=== PATIENT | male | born 1945 | race Caucasian/White ===

== ENCOUNTER 2018-06-10 | Emergency (ER) | payer BC, OTHER | END 2018-06-10 14:25 | disposition home or self-care (01) | DX: H10.12 Acute atopic conjunctivitis, left eye (principal); E78.5 Hyperlipidemia, unspecified ==

== ENCOUNTER 2019-03-10 08:21 | Day surgery (SDC) | payer OTHER ==
--- NOTE | 2019-03-09 10:08 | PDGENHP ---
History & Physical Chief Complaint: Right knee ACL tear and tibial avulsion, MCL tear, meniscus tear History of Present Illness: Dion is a pleasant 73 mckenna old male with right knee ACL tear and tibial avulsion, grade III MCL tear, medial and lateral meniscus tears, segond fracture after skiing injury on 01/20/19. He continues to have pain and instability due to the injury and would like to proceed with surgical intervention Pertinent Past, Social, Family History: PMH: arthritis, GERD, hernia, sleep apnea. SH: former smoker. FH: non-contributory Relevant Physical Exam: Physical exam of the right knee demonstrates tenderness overlying both the medial and lateral joint line. He has a mild joint effusion as well as moderate soft issue swelling. He has increased laxity to a valgus stress with a slightly loose end point, but this has improved since his previous visit. Lachmans and anterior drawer positive. He is tender overlying the origin and insertion of the MCL which is less tender over the medial joint line and has improved since his previous visit. Distal NVI. Cardiorespiratory Assessment: RRR, CTAB
[2019-03-10] MEDS ORDERED: ceFAZolin 2 GM/DEXTROSE 100 ML IV ONE (08:38)
[2019-03-10] MEDS ORDERED: LR 1,000 ML IV ONE (08:39)
[2019-03-10] MEDS ORDERED: BUPIVACAINE/EPI 0.25% 30 ML SDV ONE (08:40)
[2019-03-10] MEDS ORDERED: EPINEPHrine 1 MG/ML INJ ONE (08:41)
--- NOTE | 2019-03-10 09:20 | PDHPUP ---
History & Physical Update H&P update statement: This history and physical update is based on an assessment of the patient which was completed after admission or registration (within 24 hours), but prior to the surgery/procedure. H&P update: H&P reviewed & patient examined, no change in patient's condition since H&P completed
--- NOTE | 2019-03-10 09:42 | PDANEPAE ---
ANE History of Present Illness ruptured ACL here for repair ANE Past Medical History - Cardiovascular History Hx Hypertension: No Hx Arrhythmias: No Hx Chest Pain: No Hx Coronary Artery / Peripheral Vascular Disease: No Hx CHF / Valvular Disease: No Hx Palpitations: No Cardiovascular History Comment: high chol - Pulmonary History Hx COPD: No Hx Asthma/Reactive Airway Disease: No Hx Recent Upper Respiratory Infection: No Hx Oxygen in Use at Home: No Hx Sleep Apnea: Yes Sleep Apnea Screening Result - Last Documented: Positive Pulmonary History Comment: terri positive uses cpap - Neurologic History Hx Cerebrovascular Accident: No Hx Seizures: No Hx Dementia: No - Endocrine History Hx Diabetes: No - Renal History Hx Renal Disorders: No - Liver History Hx Hepatic Disorders: No - Neurological & Psychiatric Hx Hx Neurological and Psychiatric Disorders: No - Cancer History Hx Cancer: No - Congenital Disorder History Hx Congenital Disorders: No - GI History Hx Gastrointestinal Disorders: No - Other Health History Other Health History: wears glasses - Chronic Pain History Chronic Pain: Yes (right knee pain) - Surgical History Prior Surgeries: hernia repair 2018. tonsillectomy as a child ANE Review of Systems Review of Systems: - Exercise capacity METS (RN): 4 METS ANE Patient History - Allergies Allergies/Adverse Reactions: No Known Allergies Allergy (Verified 03/03/19 09:14) - Home Medications Home Medications: Atorvastatin Calcium 06/10/18 [Last Taken 03/09/19 08:00] Flomax 06/10/18 [Last Taken 03/09/19 08:00] Meloxicam 06/10/18 [Last Taken 03/09/19 08:00] Herbals/Supplements -Info Only 03/03/19 [Last Taken 03/09/19 08:00] Testosterone 03/03/19 [Last Taken 03/09/19 08:00] Cialis 03/10/19 [Last Taken 03/09/19 17:00] - NPO status NPO Status: no food or drink >8 hours NPO Since - Liquids (Date): 03/09/19 NPO Since - Liquids (Time): 21:00 NPO Since - Solids (Date): 03/09/19 NPO Since - Solids (Time): 18:00 - Anes Hx Anes Hx: no prior problems - Smoking Hx Smoking Status: Never smoked - Alcohol Use Alcohol Use: Occasionally - Family Anes Hx Family Anes Hx: none Family Hx Anesthesia Complications: none ANE Labs/Vital Signs - Vital Signs Blood Pressure: 118/74 Heart Rate: 69 Respiratory Rate: 16 O2 Sat (%): 94 Height: 180.34 cm Weight: 81.647 kg ANE Physical Exam - Airway Neck exam: FROM Mallampati Score: Class 2 Mouth exam: normal dental/mouth exam - Pulmonary Pulmonary: no respiratory distress, clear to auscultation - Cardiovascular Cardiovascular: regular rate and rhythym, no murmur, rub, or gallop - ASA Status ASA Status: II ANE Anesthesia Plan Anesthesia Plan: GA w LMA Regional Anesthesia: single shot NB, adductor canal FNB
[2019-03-10] MEDS ORDERED: MIDAZOLAM 2 MG/2 ML VIAL IVP ONE (09:43)
[2019-03-10] MEDS ORDERED: PROPOFOL 200 MG/20 ML VIAL ONE (09:52)
[2019-03-10] MEDS ORDERED: fentaNYL 100 MCG/2 ML INJ ONE ×3 (09:52→13:11)
[2019-03-10] MEDS ORDERED: LIDOCAINE 2% 100 MG/5 ML SYR ONE (09:52)
[2019-03-10] MEDS ORDERED: clonIDINE 1 MG/10 ML VIAL EP ONE (09:53)
[2019-03-10] MEDS ORDERED: ROPIVACAINE HCL 150 MG/30 ML INJ ONE (09:53)
[2019-03-10] MEDS ORDERED: ONDANSETRON 4 MG/2 ML VIAL ONE (10:40)
[2019-03-10] MEDS ORDERED: DEXAMETHASONE 4 MG/ML VIAL ONE (10:40)
[2019-03-10] MEDS ORDERED: THROMBIN (BOVINE) 5,000 UNIT VIAL TP ONE (10:41)
[2019-03-10] MEDS ORDERED: CALCIUM CHLORIDE 1 GM/10 ML INJ ONE (10:41)
[2019-03-10] MEDS ORDERED: ACETAMINOPHEN 500 MG TAB PO PRN ×2 (11:25→12:33)
[2019-03-10] MEDS ORDERED: HYDROmorphONE/DILAUDID 1 MG/ML INJ IVP PRN ×2 (11:25→12:33)
[2019-03-10] MEDS ORDERED: fentaNYL 100 MCG/2 ML INJ IVP PRN ×2 (11:25→12:33)
[2019-03-10] MEDS ORDERED: HYDROCODONE/APAP 5/325 TAB PO PRN ×2 (11:25→12:33)
[2019-03-10] MEDS ORDERED: ONDANSETRON 4 MG/2 ML VIAL IVP PRN ×2 (11:25→12:33)
[2019-03-10] MEDS ORDERED: NALOXONE HCL 0.4 MG/ML INJ IVP PRN ×2 (11:25→12:33)
[2019-03-10] MEDS ORDERED: oxyCODONE IR 5 MG TAB PO PRN ×2 (11:25→12:33)
[2019-03-10] MEDS ORDERED: TAPENTADOL HCL 50 MG TAB PO PRN (12:22)
[2019-03-10] MEDS ORDERED: PROMETHAZINE HCL 25 MG SUPPR PR PRN (12:22)
[2019-03-10] MEDS ORDERED: DIPHENOXYLATE/ATROPINE LOMOTIL 1 TAB PO PRN (12:22)
[2019-03-10] MEDS ORDERED: PROMETHAZINE HCL 25 MG/ML INJ IVP PRN (12:22)
[2019-03-10] MEDS ORDERED: BISACODYL 10 MG SUPP PR PRN (12:22)
[2019-03-10] MEDS ORDERED: LACTULOSE 20 GM/30 ML UDCUP PO PRN (12:22)
[2019-03-10] MEDS ORDERED: diphenhydrAMINE 25 MG CAP PO PRN (12:22)
[2019-03-10] MEDS ORDERED: ONDANSETRON DISINTEGRATING 4 MG TAB PO PRN (12:22)
[2019-03-10] MEDS ORDERED: MAGNESIUM HYDROXIDE 30 ML UDCUP PO PRN (12:22)
[2019-03-10] MEDS ORDERED: TEMAZEPAM 15 MG CAP PO PRN (12:22)
[2019-03-10] MEDS ORDERED: POLYETHYLENE GLYCOL 3350 17 GM PKT PO PRN (12:22)
[2019-03-10] MEDS ORDERED: METOCLOPRAMIDE 10 MG/2 ML VIAL IVP PRN (12:22)
[2019-03-10] MEDS ORDERED: CYCLOBENZAPRINE 10 MG TAB PO PRN (12:22)
--- NOTE | 2019-03-10 12:22 | POSTOPPROG ---
Post Op Note Date of Operation: 03/10/19 Surgeon: Halima Reyna Taproom Attendant: coltrain Anesthesia: GET(General Endotracheal), Other (Specify) Pre-op Diagnosis: r mmt/lmt/acl tear/mcl tear/ oa Procedure: r knee scope with acl recon w/ HS autograft an dpatial med/lat menisectomy Inf/Abcess present in the surg proc area at time of surgery?: No Depth: Deep Incisional (Fascial) EBL: 50-100
[2019-03-10] MEDS ORDERED: LR 1,000 ML IV SCH (12:30)
--- NOTE | 2019-03-10 12:34 | POSTANESTH ---
Post Anesthetic Evaluation Cardiovascular Status: Normal, Stable, Similar to Pre-Op Cond Respiratory Status: Normal, Stable, Similar to Pre-op Cond. Level of Consciousness/Mental Status: Can Participate in Eval, Alert and Oriented Pain Control: Adequate, Prn Tx Ordered Nausea/Vomiting Control: Adequate, Prn Tx Ordered Complications Possibly Related to Anesthesia: None Noted
[2019-03-10 13:32] VITALS: BP 118/62
[2019-03-10] MEDS ORDERED: HYDROCODONE/APAP 5/325 TAB ONE (13:37)
--- NOTE | 2019-03-10 13:40 | GOP ---
[f rep st] OPERATIVE REPORT DATE OF OPERATION: 03/10/2019 SURGEON: Halima Reyna MD WOOD BOATBUILDER: DOUGIE SnowdenA, LSA, who presence was medically necessary. ANESTHESIA: LMA. PREOPERATIVE DIAGNOSIS: Right knee acromioclavicular tear with medial collateral ligament tear, medi al and lateral meniscal tears. POSTOPERATIVE DIAGNOSIS: Right knee acromioclavicular tear with medial collateral ligament tear, med ial and lateral meniscal tears with grade 3 chondral changes of the patella as well as the medial fem oral condyle. PROCEDURE PERFORMED: Right knee arthroscopy with anterior cruciate ligament reconstruction with hams tring autograft and partial medial meniscectomy as well as chondroplasty of the medial patellofemoral compartments. FINDINGS: INDICATIONS: This is a 73-year-old male who injured his knee while skiing approximately a month and half ago. He was noted to have an MCL tear, ACL, medial and lateral meniscal tears. It was decided to wait for his MCL to have a chance to heal prior to undergoing a surgical fixation. Once his MCL wa s stable he was able to be scheduled. DESCRIPTION OF PROCEDURE: Patient brought to the operating room after the right side had been identi fied as the correct side by the patient, nurse, and physician. Once in the operating room, he was pl aced under general anesthesia using an LMA. Once asleep, tourniquet was placed around the upper port ion of the right thigh, and both legs placed in appropriate leg holders. The right lower extremity w as than sterilely prepped and draped in the usual fashion using GSI solution. Once prepped and drape d, limb was exsanguinated, tourniquet inflated to 250 mmHg. Incision was made in the superomedial po rtion of the knee with an outflow trocar introduced without difficulty. A 2nd incision was made late ral to the patellar tendon between the inferior pole of the patella and the tibia plateau with the ca isabela introduced without difficulty. Inspection of the joint revealed no loose bodies in the suprapat ellar pouch or in the mediolateral gutter. There was noted be grade 3 chondral changes to the patell a, but none to the trochlea. Further inspection revealed the ACL ligament to be grossly intact, but had pulled a small shell of bone off the tibia making it infective. Further inspection revealed a gr matty 3 chondral change of the weightbearing portion of medial femoral condyle as well as a large fragm ented tear of the posterior horn of the medial meniscus. Inspection of the lateral compartment revea led no chondral changes and a large tear of the posterior horn of the lateral meniscus as well as avu lsion of the anterior horn of lateral meniscus. Due to the small shard of bone associated with the A CL insertion on the tibia, rather than do primary repair onto bony bed, it was decided to do an ACL r econstruction. Therefore, the ACL ligament was removed as well as its bony bed, partial medial and p artial lateral meniscectomy were performed as well as chondroplasty of the patellofemoral and medial compartments. Once an adequate debridement had been performed, intercondylar guide was put into plac e and the knee brought to full extension. It was set in slight external rotation and a guidewire pas sed through the bullet entering the intercondylar notch. Once the guide was removed, position of the pin was checked. Once it was noted to be in good position a notchplasty was performed in order to a ccommodate the size of the graft. After the graft had been harvested from the pes anserinus using a 4 cm incision inferomedial to the tibial tubercle, the graft had been sent to the back table for prep aration for implantation. It was found to be 8 mm in diameter once fully prepared; therefore, an 8 m m cannulated drill was passed over the tibial guidewire into the tibia at which point, a 6 mm offset guide was placed through the tibial tunnel, perched on the posterior lateral portion of the intercond ylar notch, and a guidewire passed through the offset guide and exiting the anterior lateral cortex o f the femur. An Endo button drill was passed over the guidewire exiting the anterolateral thigh. Th e tunnel was measured to be 48 mm in depth; therefore, the guidewire was passed through the tibial tu nnel through the femoral tunnel exiting the anterolateral thigh, held in place with a Miriam clamp. An 8 mm ball-tip drill was then passed over the guidewire through the tibial tunnel into the femur an d set to a depth of 25 mm. Any bony debris was removed. The graft and its associated Endobutton wer e attached onto the guidewire, was brought through the tibia through the femur exiting the anterolate ral thigh. The sutures were pulled to the tibial and femoral tunnel pulling the Endobutton into plac e. Once in place, the tightening sutures were brought through the anteromedial portal of the knee. They were sequentially tightened pulling the graft into the femoral tunnel. Once in place, the graft was tugged upon, noted to be able to move the entire body suggesting an adequate fixation had occurr ed. The knee was brought through range of motion, noted to have no excursion of the graft within the tibial tunnel suggesting isometry. The camera was reintroduced into the knee. The knee was brought to full extension showing that the graft was nowhere near the intercondylar ceiling suggesting an ad equate amount of room had been left for the graft. Nitinol wire was then passed into the tibial tunn el on the posterior portion of the graft and a 9 mm Biomet anchor was then put into place to secure t he tibial fixation. Once in place, the camera was reintroduced into the knee. A probe was used to t ug on the ACL to see how stable it was, noted to have very little excursion and the Katy's test wa s performed, noted to have less than 3 mm of motion of the tibia relative to the medial femoral condy le. The remainder of the hamstring graft was excised. The tibial wound was then closed in layers wi th 2-0 Vicryl suture in subcutaneous layers with a 3-0 V-Loc suture in a running subcuticular stitch for the skin. 30 cc of Marcaine was infused in the actual knee joint itself as well as plasma gel an d the 3 portal sites were closed using 3-0 nylon suture in a [id number] type stitch. The tibial wound was dressed with Steri-Strips. All wounds were then dressed with Xeroform, 4 x 4, wrapped in Kerlix. Tourniquet was deflated at 102 minutes. Leg was completely undraped in the operating, taken out of leg patton, tourniquet removed from the thigh, and an Cole wrap placed around the knee. He th en had the right lower extremity placed within a long-leg hinged immobilizer locked at 0 degrees. He had the left leg taken out of its leg patton. He was placed supine. He was woken up, extubated, tra nsferred onto a stretcher, and sent to the recovery room in good condition. TOURNIQUET TIME: 102 minutes. /[id number]/MODL
[2019-03-10] MEDS ORDERED: traMADol 50 MG TAB PO SCH (18:00)
[2019-03-10] MEDS ORDERED: FAMOTIDINE 20 MG TAB PO SCH (21:00)
[2019-03-10] MEDS ORDERED: ASPIRIN 325 MG TAB PO SCH (21:00)
[2019-03-10] MEDS ORDERED: SENNOSIDES/DOCUSATE SODIUM TAB PO SCH (21:00)
== END 2019-03-10 13:46 | disposition home or self-care (01) ==
LOC: FSGY 08:21
PROVIDERS: ATTEND Orthopaedic Surgery
DX: S83.511A Sprain of anterior cruciate ligament of right knee, initial encounter (principal); S82.131A Displaced fracture of medial condyle of right tibia, initial encounter for closed fracture; S83.411A Sprain of medial collateral ligament of right knee, initial encounter; S83.221A Peripheral tear of medial meniscus, current injury, right knee, initial encounter; S83.261A Peripheral tear of lateral meniscus, current injury, right knee, initial encounter; M94.8X6 Other specified disorders of cartilage, lower leg; M19.91 Primary osteoarthritis, unspecified site; K21.9 Gastro-esophageal reflux disease without esophagitis; G47.33 Obstructive sleep apnea (adult) (pediatric); Z87.891 Personal history of nicotine dependence
CPT/HCPCS: C1713; J0171; J0690; J0735; J1100; J2001; J2250; J2405; J2704; J2795; J3010; L1832